=== PATIENT | female | born 1960 | race Caucasian/White ===

== ENCOUNTER 2020-11-25 09:12 | Outpatient (REF) | payer OTHER, SELFPAY ==
[2020-11-25 10:13] LABS: Hematocrit 40.3 % (37-47); Hemoglobin 12.6 g/dl (12.0-16.0); Mean Corpuscular HGB Conc 31.3 g/dl (31.0-35.0); Mean Corpuscular Hemoglobin 26.9 pg (27.0-33.0); Mean Corpuscular Volume 85.9 fL (80-98); Mean Platelet Volume 10.1 fL (9.4-12.3); Platelet Count 298 X10*3/uL (160-400); Red Blood Count 4.69 X10*6/uL (4.20-5.50); Red Cell Distribution Width 14.5 % (11.0-16.0); White Blood Count 7.1 X10*3/uL (4.8-10.8)
[2020-11-25 10:47] LABS: Alanine Aminotransferase 23 U/L (0-31); Albumin Level 4.3 g/dL (3.5-5.0); Alkaline Phosphatase 71 U/L (39-117); Anion Gap 11 (12-20); Aspartate Amino Transferase 17 U/L (5-31); Bilirubin Direct < 0.2 mg/dL (0.0-0.5); Bilirubin Total 0.3 mg/dL (0.0-1.0); Blood Urea Nitrogen 19 mg/dL (9-16); Calcium 9.5 mg/dL (8.4-10.2); Carbon Dioxide 29 mmol/L (22-29); Chloride 104 mmol/L (96-108); Cholesterol 227 mg/dL; Estimated Glomerular Filt Rate > 60; Glucose Random 77 mg/dL (60-115); HDL Cholesterol 59 mg/dL; LDL Cholesterol Calculated 136 mg/dl; Potassium 4.6 mmol/L (3.3-5.1); Sodium 139 mmol/L (135-145); Total Protein 7.3 g/dL (6.5-8.0); Triglycerides 163 mg/dL
[2020-11-25 10:48] LABS: Glucose Urine UA NEG (NEG); Leukocyte Esterase Urine TRACE (NEG); Nitrite Urine NEG (NEG); PH 5.5 (5.0-8.0); Specific Gravity - Urine 1.025 (1.005-1.025); Urine Blood NEG (NEG); Urine Ketones NEG (NEG); Urine Protein NEG (NEG-TRACE)
[2020-11-25 10:51] LABS: Appearance Urine CLEAR; Color Urine YELLOW
[2020-11-25 11:10] LABS: RBC Urine 0-2 /HPF (0); WBC Urine 0-2 /HPF (0-4)
[2020-12-04 12:51] LABS: Vitamin D 25-OH, D2 <4 ng/mL; Vitamin D 25-OH, D3 22 ng/mL; Vitamin D 25-OH, Total 22 ng/mL (30-100)
== END 2020-11-25 09:13 | disposition home or self-care (01) ==
LOC: HO.LAB 09:12
PROVIDERS: PCP Internal Medicine; Visit Provider Internal Medicine
DX: I10 Essential (primary) hypertension (principal)
CPT/HCPCS: 36415; 80048; 80061; 80076; 81001; 82306; 84443; 85027

== ENCOUNTER → 2020-12-06 08:01 | Outpatient (REF) | payer OTHER, SELFPAY ==
--- NOTE | ~2020-12-06 | NM_ITS ---
Lexiscan Myocardial perfusion study Indication: Chest pain, assess for coronary disease and ischemia Technique: The patient was brought in for a Lexiscan perfusion study on 12/06/2020 and was injected 0.4 mg of Lexiscan intravenously. Within a minute of this injection 30 mCi of sestamibi was given intravenously. Images were obtained using the SPECT gamma camera interlaced with the gating device. Images were obtained in supine position. Resting perfusion study was performed on 12/09/2020. Patient was administered 30 mCi of sestamibi intravenously at rest. Images were then obtained in supine position. Total DLP 103mGy-cm. Images were processed with the software and compared side to side in short axis, horizontal long axis and vertical long axis views. Findings: Raw acquisition was reviewed. The stress perfusion study showed mildly diminished tracer uptake in the mid to distal anterior wall. With CT attenuation correction, this improves suggesting soft tissue attenuation artifact. The gated study shows normal LV systolic function with calculated LVEF of 76%. LV cavity is normal in size. The gated study shows normal wall thickening and contraction of segments. Resting study shows diminished tracer uptake in the mid to distal anterior wall. Improvement with CT attenuation suggestive of artifactual etiology. Gating at rest reveals normal wall motion with ejection fraction at 75%. The findings are consistent with fixed defect in the mid to distal anterior wall; no reversible defects. NM/NM oh perf SPECT rest & str Impression: 1. Myocardial perfusion imaging study shows no definitive evidence of any ischemia or infarction. Fixed anterior defect suspected to be from soft tissue attenuation artifact. 2. Gated LVEF is > 70% during stress and rest. 3. Transient ischemic dilatation not present. EKG component of the test reported separately.
--- NOTE | 2020-12-06 08:04 | CA_ITS ---
Acquisition Time: 2020-12-06 08:04:12 Total Exercise Time: 00:02:00 Test Indications: Chest Pain Medications: AMLODIPINE LEVOTHYROXINE Protocol: LEXISCAN Max HR: 100 BPM 62% of Pred: 159 BPM Max BP: 140/092 mmHG Max Work Load: 1.0 METS Pharmacological stress test with Lexiscan injection, while sitting and kicking her legs, without anginal symptoms, without arrythmia, with normotensive response to injection, with nondiagnostic EKG for ischemia. Nuclear images pending. Test reviewed with Dr Duarte. Referred By: Scottie Riley Overread By: FANG ELLIS
== END ==
LOC: HO.CARD 08:01
PROVIDERS: PCP Internal Medicine; Visit Provider Internal Medicine
DX: R07.9 Chest pain, unspecified (principal)
CPT/HCPCS: 78452; 93017; A9500; J0280; J2785

== ENCOUNTER 2020-12-09 09:25 | Outpatient (REF) | payer OTHER, SELFPAY ==
--- NOTE | ~2020-12-09 | MM_ITS ---
EXAMINATION: MM SCREENING DIGITAL BREAST TOMOSYNTHESIS, BILATERAL CLINICAL INFORMATION: Screening. Asymptomatic. Prior outside mammography no longer available. Age 60. No known family history breast cancer. The lifetime risk of breast cancer based on the Tyrer-Cuzick Model is 5%. COMPARISON: None (current study represents new baseline exam). TECHNIQUE: Digital breast tomosynthesis is performed in both the craniocaudal and mediolateral oblique views along with computer-aided detection (CAD). Synthesized 2D images are generated from the tomosynthesis. FINDINGS: There are scattered areas of fibroglandular density (ACR BI-RADS breast composition Category b). There are no significant masses, abnormal calcifications, or other abnormalities. The axilla and skin contours are unremarkable. MM/MM tomosynthesis screening BI IMPRESSION: No mammographic evidence of malignancy. ASSESSMENT: BI-RADS 1: Negative RECOMMENDATION: Routine annual mammography screening. This patient's information was entered into a reminder system with a target due date for their next mammogram.
== END 2020-12-09 09:26 | disposition home or self-care (01) ==
LOC: HO.MAMMO 09:25
PROVIDERS: PCP Internal Medicine; Visit Provider Internal Medicine
DX: Z12.31 Encounter for screening mammogram for malignant neoplasm of breast (principal)
CPT/HCPCS: 77063; 77067

== ENCOUNTER 2022-01-23 10:33 | Outpatient (REF) | payer OTHER, SELFPAY ==
[2022-01-23 11:11] LABS: Hemoglobin 13.2 g/dl (12.0-16.0); Mean Corpuscular HGB Conc 32.2 g/dl (31.0-35.0); Mean Corpuscular Hemoglobin 27.2 pg (27.0-33.0); Mean Corpuscular Volume 84.4 fL (80.0-98.0); Mean Platelet Volume 10.2 fL (9.4-12.3); Platelet Count 283 X10*3/uL (160-400); Red Blood Count 4.86 X10*6/uL (4.20-5.50); Red Cell Distribution Width 14.2 % (11.0-16.0); White Blood Count 7.5 X10*3/uL (4.8-10.8)
[2022-01-23 11:54] LABS: Alanine Aminotransferase 27 U/L (0-31); Albumin Level 4.2 g/dL (3.5-5.0); Alkaline Phosphatase 71 U/L (39-117); Anion Gap 15 (12-20); Aspartate Amino Transferase 20 U/L (5-31); Bilirubin Direct 0.2 mg/dL (0.0-0.5); Bilirubin Total 0.3 mg/dL (0.0-1.0); Blood Urea Nitrogen 19 mg/dL (9-16); Calcium 9.5 mg/dL (8.4-10.2); Carbon Dioxide 28 mmol/L (22-29); Chloride 100 mmol/L (96-108); Cholesterol 242 mg/dL; Estimated Glomerular Filt Rate 58; Glucose Random 79 mg/dL (60-115); HDL Cholesterol 59 mg/dL; LDL Cholesterol Calculated 150 mg/dl; Potassium 4.3 mmol/L (3.3-5.1); Sodium 139 mmol/L (135-145); Total Protein 7.3 g/dL (6.5-8.0); Triglycerides 168 mg/dL
== END 2022-01-23 10:34 | disposition home or self-care (01) ==
LOC: HO.LAB 10:33
PROVIDERS: PCP Internal Medicine; Visit Provider Internal Medicine
DX: I10 Essential (primary) hypertension (principal)
CPT/HCPCS: 36415; 80048; 80061; 80076; 84443; 85027

== ENCOUNTER 2022-01-27 08:45 | Outpatient (REF) | payer OTHER, SELFPAY ==
--- NOTE | ~2022-01-27 | MM_ITS ---
EXAMINATION: MM SCREENING DIGITAL BREAST TOMOSYNTHESIS, BILATERAL CLINICAL INFORMATION: Screening. Asymptomatic. The lifetime risk of breast cancer based on the Tyrer-Cuzick Model is 5%. COMPARISON: Mammography: 12/09/2020 (new baseline) TECHNIQUE: Digital breast tomosynthesis is performed in both the craniocaudal and mediolateral oblique views along with computer-aided detection (CAD). Synthesized 2D images are generated from the tomosynthesis. FINDINGS: There are scattered areas of fibroglandular density (ACR BI-RADS breast composition Category b). Parenchymal pattern is similar to prior baseline exam. No interval mass or architectural abnormality. No abnormal calcifications. The axilla and skin contours are unremarkable. MM/MM tomosynthesis screening BI IMPRESSION: No mammographic evidence of malignancy. ASSESSMENT: BI-RADS 1: Negative RECOMMENDATION: Routine annual mammography screening. This patient's information was entered into a reminder system with a target due date for their next mammogram.
== END 2022-01-27 08:46 | disposition home or self-care (01) ==
LOC: HO.MAMMO 08:45
PROVIDERS: PCP Internal Medicine; Visit Provider Internal Medicine
DX: Z12.31 Encounter for screening mammogram for malignant neoplasm of breast (principal)
CPT/HCPCS: 77063; 77067

== ENCOUNTER 2022-07-16 08:27 | Outpatient (REF) | payer OTHER, SELFPAY ==
[2022-07-16 09:57] LABS: Hematocrit 43.1 % (37.0-47.0); Hemoglobin 13.8 g/dl (12.0-16.0); Mean Corpuscular Hemoglobin 27.2 pg (27.0-33.0); Mean Corpuscular Volume 84.8 fL (80.0-98.0); Mean Platelet Volume 10.6 fL (9.4-12.3); Platelet Count 314 X10*3/uL (160-400); Red Blood Count 5.08 X10*6/uL (4.20-5.50); Red Cell Distribution Width 14.5 % (11.0-16.0); White Blood Count 7.5 X10*3/uL (4.8-10.8)
[2022-07-16 10:44] LABS: Alanine Aminotransferase 29 U/L (0-31); Albumin Level 4.4 g/dL (3.5-5.0); Alkaline Phosphatase 68 U/L (39-117); Anion Gap 13 (12-20); Aspartate Amino Transferase 21 U/L (5-31); Bilirubin Direct < 0.2 mg/dL (0.0-0.5); Bilirubin Total 0.6 mg/dL (0.0-1.0); Blood Urea Nitrogen 16 mg/dL (9-16); Calcium 9.4 mg/dL (8.4-10.2); Carbon Dioxide 28 mmol/L (22-29); Chloride 101 mmol/L (96-108); Cholesterol 194 mg/dL; Estimated Glomerular Filt Rate > 60; Glucose Random 82 mg/dL (60-115); HDL Cholesterol 69 mg/dL; LDL Cholesterol Calculated 98 mg/dl; Potassium 4.5 mmol/L (3.3-5.1); Sodium 137 mmol/L (135-145); Total Protein 7.4 g/dL (6.5-8.0); Triglycerides 138 mg/dL
== END 2022-07-16 08:28 | disposition home or self-care (01) ==
LOC: HO.LAB 08:27
PROVIDERS: PCP Internal Medicine; Visit Provider Internal Medicine
DX: E78.01 Familial hypercholesterolemia (principal)
CPT/HCPCS: 36415; 80048; 80061; 80076; 84443; 85027

== ENCOUNTER 2022-12-23 09:42 | Outpatient (AMB) | payer OTHER, SELFPAY ==
--- NOTE | 2022-12-23 09:48 | A.OFFVIS_ITS ---
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 No complaints. Last Pap/HPV was many years ago Last Mammogram was BI-RADS 1 in 01/29 No previous screen colonoscopy [facility] Medical History (Updated 12/23/22 @ 10:03 by David Monique MD) Acquired hypothyroidism Class 2 severe obesity with body mass index (BMI) of 35 to 39.9 with serious comorbidity Edema of both feet Essential hypertension Familial hypercholesterolemia Surgical History (Updated 12/23/22 @ 09:55 by Sammi Mckeon CMA) History of dilatation and curettage History of hysterectomy History of rotator cuff surgery Hx of tubal ligation Family History (Updated 12/23/22 @ 09:55 by Sammi Mckeon CMA) Mother HTN (hypertension) Diabetes Social History (Updated 12/23/22 @ 09:56 by Sammi Mckeon CMA) Household Members: None Housing: Apartment Alcohol intake: former Patient Tobacco Use Status: Former Tobacco user Tobacco use type: Cigarette e-Cigarette/Vaping Use: Never Used Second Hand Smoke Exposure: Yes service: No Current occupational status: unemployed and previously employed Sexually active: No Sexual orientation: Straight/Heterosexual Gender identity: Female Cognitive needs: No Hearing needs: No Vision needs: Yes (glasses) Female Reproductive History Menstrual control method: permanent sterilization Total pregnancies: 3 Full term: 3 Number of Living Children: 3 Review of Systems Const All systems reviewed & are unremarkable except as noted in HPI and below Card Reports as per HPI and Reports no additional complaints Resp Reports as per HPI and Reports no additional complaints GI Reports as per HPI and Reports no additional complaints Reports as per HPI Physical Exam Vital Signs: Last Vital Signs BP 124/78 12/23/22 09:51 BMI result Body Mass Index 36.0 Const General: cooperative, healthy appearing and comfortable Chest Chest palpation & inspection: normal inspection of the chest and normal palpation of entire chest wall Breast/axilla inspection: normal inspection of the breasts and normal inspection of the axillae Breast/axilla palpation: normal palpation of the breasts, normal palpation of the axillae and no axillary lymphadenopathy Resp Effort & Inspection: normal respiratory effort Auscultation: clear to auscultation bilaterally Percussion: percussion normal Cardio Palpation: normal PMI Rate: regular rate Rhythm: regular rhythm Heart sounds: no murmurs and no rubs Peripheral pulses: Peripheral pulses 2+ throughout GI Inspection: Yes normal to inspection Palpation (GI): Soft to palpation, nontender, no guarding, not rigid and No hepatosplenomegaly present Percussion: Yes normal to percussion Auscultation: normal bowel sounds Rectal Exam - Female: deferred General: Yes bladder normal to palpation External Female Exam: No lesion Speculum Exam - Vagina: normal appearance of the vagina, normal vaginal discharge and not erythematous Speculum Exam - Cervix: normal appearance of the cervix Bimanual exam- vagina & uterus: bladder normal to palpation and uterine shape normal Bimanual Exam- Adnexa, other: normal adnexae Assessment & Plan Assessment & Plan (1) Well woman exam: Code(s): Z01.419 - Encounter for gynecological examination (general) (routine) without abnormal findings Plan: Co testing done. Counseled the patient about the recommended dietary allowance of 1200 mg of Calcium & 600 IU of vitamin D. Mammogram ordered , the patient was referred to GI for screening colonoscopy . The patient was instructed to perform monthly self-breast exams and schedule annual exam in a year; all questions answered and the patient verbalized understanding. Orders: Orders MM screening mammo BI Today Z12.31 - Encounter for screening mammogram for malignant neoplasm of breast Referrals Gastroenterology Referral Z12.11 - Encounter for screening for malignant neoplasm of colon Coding Level of Care Code New Pt Prev Care 40-64y(19180) Diagnoses Well woman exam Z01.419
[2022-12-23 09:51] VITALS: BP 124/78; BMI 36.0
== END 2022-12-23 10:15 | disposition home or self-care (01) ==
LOC: HO.HWS 09:42
PROVIDERS: PCP Internal Medicine; Visit Provider Obstetrics & Gynecology
DX: Z01.419 Encounter for gynecological examination (general) (routine) without abnormal findings (principal)
CPT/HCPCS: 99386

== ENCOUNTER 2022-12-23 09:42 | Outpatient (REF) | payer OTHER, SELFPAY ==
[2022-12-25 21:33] LABS: HPV mRNA E6/E7 rflx Not Detected (Not Detected)
== END 2022-12-23 09:43 | disposition home or self-care (01) ==
LOC: HO.LNP 09:42
PROVIDERS: PCP Internal Medicine; Visit Provider Obstetrics & Gynecology
DX: Z01.419 Encounter for gynecological examination (general) (routine) without abnormal findings (principal); Z12.31 Encounter for screening mammogram for malignant neoplasm of breast
CPT/HCPCS: 87624; 88142

== ENCOUNTER 2023-12-29 14:31 | Outpatient (AMB) | payer OTHER, SELFPAY ==
[2023-12-29 14:37] VITALS: BP 128/82; PULSE 73; O2SAT 98; BMI 36.8
--- NOTE | 2023-12-29 14:37 | MHC.PC.OV ---
Vital Signs 12/29/23 14:37 Height 5 ft 3 in Weight 207 lb 8 oz BMI 36.8 BP 128/82 Blood Pressure Location Lt brachial Position Sitting Pulse 73 Pulse Source Pulse Oximeter Pulse Oximetry (%) 98 Oxygen Delivery Method Room Air Intake Visit Reasons: Body aches, numbness Shadow Graph Weight Operator Required: No Accompanied by: Self / Same As Patient Allergies No Known Allergies Allergy (Verified 12/29/23 14:38) Tobacco use date assessed: 12/29/23 Fall risk assessment: No Falls in past year Last assessed Fall Risk: 12/29/23 Dental Screening Dental Screen Date: 12/29/23 Did you have a dental visit in the last 12 months?: No Did you have a dental problem in the last 6 months where you did not have access to dental care?: No Was dental information given to patient?: No HPI Body aches, numbness HPI Details 63-year-old female presents to the office to discuss her chronic medical conditions. Patient has had intermittent pain from her neck to the toe. Symptoms are worse in the morning especially around the right hand. Stiffness symptoms last for less than an hour. Able to function and do her activities of daily living. Despite 2 providers giving her appointments for a screening colonoscopy, patient has not had it done. Continues to be reluctant. She will need an appointment for a screening mammogram. Patient also has mild psoriasis behind the right ear and is requesting treatment. [facility] Medical History (Updated 12/29/23 @ 15:39 by Scottie Riley MD) Psoriasis Familial hypercholesterolemia Class 2 severe obesity with body mass index (BMI) of 35 to 39.9 with serious comorbidity Edema of both feet Acquired hypothyroidism Essential hypertension Surgical History History of dilatation and curettage Hx of tubal ligation History of hysterectomy History of rotator cuff surgery Family History Mother HTN (hypertension) Diabetes Social History Household Members: None Housing: Apartment Alcohol intake: former Patient Tobacco Use Status: Former Tobacco user Tobacco use type: Cigarette e-Cigarette/Vaping Use: Never Used Second Hand Smoke Exposure: Yes service: No Current occupational status: unemployed and previously employed Sexual orientation: Straight/Heterosexual Gender identity: Female Cognitive needs: No Hearing needs: No Vision needs: Yes (glasses) Questionnaire PHQ-9 Over the last 2 weeks, how often have you been bothered by any of the following problems? 1. Little interest or pleasure in doing things: not at all 2. Feeling down, depressed, or hopeless: not at all 3. Trouble falling or staying asleep, or sleeping too much: not at all 4. Feeling tired or having little energy: not at all 5. Poor appetite or overeating: not at all 6. Feeling bad about yourself - or that you are a failure or have let yourself or your family down: not at all 7. Trouble concentrating on things, such as reading the newspaper or watching television: not at all 8. Moving or speaking so slowly that other people could have noticed. Or the opposite - being so fidgety or restless that you have been moving around a lot more than usual: not at all 9. Thoughts that you would be better off or of hurting yourself in some way: not at all Total score: 0 Depression Screening Interpretation: Negative Depression Screening Done: Yes Source: Developed by Drs. Michele Madrigal, Keena Montero, Buddy Zuniga and colleagues, with an educational samir from [employer]. Thrive Questionnaire Date Thrive assessed: 12/29/23 I am a: Patient What is your living situation today?: I have a steady place to live Within the past 12 months, did the food you bought not last and you didn't have the money to get more?: Never true Within the past 12 months, did you worry whether your food would run out before you got money to buy more?: Never true Do you have trouble paying for medicines?: No Do you have trouble getting transportation to medical appointments?: No Do you have trouble paying your heating and electricity bill?: No Do you have trouble taking care of your child, family member or friend?: No Do you have trouble with day-to-day activities such as bathing, preparing meals, shopping, managing finances, etc.?: No Are you currently unemployed and looking for a job?: No Are you interested in more education?: No Please select the resources that you would like help with: None Currently or been in a relationship where the following occur: No concerns reported THRIVE Score: 0 AUDIT C Alcohol Use Questionnaire (AUDIT-C) 1. How often do you have a drink containing alcohol?: Never Total Score: 0 LIZET-7 AMB Questionnaire LIZET-7 Date LIZET - 7 assessed: 12/29/23 Feeling nervous, anxious, or on edge: 0 = Not at all Not being able to stop or control worryin = Not at all Worrying too much about different things: 0 = Not at all Trouble relaxin = Not at all Being so restless that it is hard to sit still: 0 = Not at all Becoming easily annoyed or irritable: 0 = Not at all Feeling afraid as if something awful might happen: 0 = Not at all Total LIZET-7 score (0-4 normal; 5-9 mild; 10-14 moderate; 15-21 severe): 0 Source: Developed by Drs. Michele Madrigal, Keena Montero, Buddy Zuniga and colleagues, with an educational samir from [employer]. Physical exam (Primary Care) Vital Signs: Last Vital Signs Pulse 73 12/29/23 14:37 BP 128/82 12/29/23 14:37 Pulse Ox 98 12/29/23 14:37 Oxygen Delivery Method Room Air 12/29/23 14:37 BMI result Body Mass Index 36.8 BMI Assessment/Plan discussion: High (1 lb per week weight loss suggested.) BMI High, discussed plan: lifestyle, weight reduction and dietary Tobacco/Smoking Status: Tobacco use Status Tobacco use date assessed 12/29/23 12/29/23 14:47 Patient Tobacco Use Status Former Tobacco user 12/29/23 14:47 Tobacco use type Cigarette 12/29/23 14:47 e-Cigarette/Vaping Use Never Used 12/29/23 14:47 PHQ-9: PHQ-9 Score PHQ-9: Total score 0 12/29/23 14:47 Depression Screening Interpretation: Negative Thrive Assessment: Date of Thrive Assessment Date Thrive assessed 12/29/23 12/29/23 14:47 Currently or been in a relationship where the following occur: No concerns reported Const General: cooperative and healthy appearing Nutritional Appearance: well nourished Orientation/consciousness: patient oriented x3 Limitations: no limitations HENMT Head: Yes normal to inspection Eyes General: appearance normal, both eyes and all related structures Neck Neck: Yes normal visual inspection Chest Chest palpation & inspection: normal palpation of entire chest wall Resp Effort & Inspection: normal respiratory effort Neuro General: patient oriented x3 Assessment and Plan Assessment & Plan (1) Essential hypertension: Code(s): I10 - Essential (primary) hypertension Plan: Blood work has been ordered. Will call with results. Continue medications at same dosage. (2) Class 2 severe obesity with body mass index (BMI) of 35 to 39.9 with serious comorbidity: Code(s): E66.01 - Morbid (severe) obesity due to excess calories Plan: Counseling on the importance of diet and exercise done. (3) Familial hypercholesterolemia: Code(s): E78.01 - Familial hypercholesterolemia Plan: Fasting blood work requested. (4) Psoriasis: Code(s): L40.9 - Psoriasis, unspecified Plan: Triamcinolone cream prescribed. Orders: Orders Basic Metabolic Panel Today E66.01 - Morbid (severe) obesity due to excess calories, E78.01 - Familial hypercholesterolemia, I10 - Essential (primary) hypertension Complete Blood Count no Diff Today E66.01 - Morbid (severe) obesity due to excess calories, E78.01 - Familial hypercholesterolemia, I10 - Essential (primary) hypertension Liver Panel Today E66.01 - Morbid (severe) obesity due to excess calories, E78.01 - Familial hypercholesterolemia, I10 - Essential (primary) hypertension Thyroid Stimulating Hormone Today E66.01 - Morbid (severe) obesity due to excess calories, E78.01 - Familial hypercholesterolemia, I10 - Essential (primary) hypertension Erythrocyte Sedimentation Rate Today E66.01 - Morbid (severe) obesity due to excess calories, E78.01 - Familial hypercholesterolemia, I10 - Essential (primary) hypertension XR cervical spine 3V Today M15.9 - Polyosteoarthritis, unspecified XR hand RT min 3V Today M15.9 - Polyosteoarthritis, unspecified Lipid Panel Today E66.01 - Morbid (severe) obesity due to excess calories, E78.01 - Familial hypercholesterolemia, I10 - Essential (primary) hypertension UA and rflx microscopic Today E66.01 - Morbid (severe) obesity due to excess calories, E78.01 - Familial hypercholesterolemia, I10 - Essential (primary) hypertension MM screening mammo BI Today Z12.31 - Encounter for screening mammogram for malignant neoplasm of breast Referrals Cologuard Test Z12.11 - Encounter for screening for malignant neoplasm of colon Coding Level of Care Code Est Pt Level 4 (54365) Complex EM visit Add On G2211 Diagnoses Essential hypertension I10 Class 2 severe obesity with body mass index (BMI) of 35 to 39.9 with serious comorbidity E66.01 Familial hypercholesterolemia E78.01 Psoriasis L40.9
== END 2023-12-29 15:38 | disposition home or self-care (01) ==
PROVIDERS: PCP Internal Medicine; Visit Provider Internal Medicine
DX: I10 Essential (primary) hypertension (principal); E66.01 Morbid (severe) obesity due to excess calories; E78.01 Familial hypercholesterolemia; Z68.36 Body mass index [BMI] 36.0-36.9, adult; L40.9 Psoriasis, unspecified
CPT/HCPCS: 99214

== ENCOUNTER 2024-01-24 11:02 | Outpatient (REF) | payer OTHER, SELFPAY ==
--- NOTE | ~2024-01-24 | XR_ITS ---
EXAMINATION: XR CERVICAL SPINE CLINICAL INFORMATION: Polyosteoarthritis, pain in neck, no recent trauma. COMPARISON: None available. TECHNIQUE: 5 views of the cervical spine. FINDINGS: Straightening of the normal cervical lordosis. Multilevel cervical spondylosis. Mild posterior subluxation of C4 on C5. [id number] loss of disc space height at C3-C4, C4-C5, C5-C6, and C6-C7. Multilevel facet arthritis. XR/XR cervical spine 3V IMPRESSION: Multilevel cervical spondylosis. Electronically signed by: Amanda Barker MD 03/26/2024 08:25 PM EST
--- NOTE | ~2024-01-24 | XR_ITS ---
EXAMINATION: XR HAND, RIGHT CLINICAL INFORMATION: Polyosteoarthritis, pain and swelling of right hand, worse in the fourth digit. COMPARISON: None available. TECHNIQUE: PA, lateral, and oblique views of the right hand. FINDINGS: Moderate degenerative changes in the first carpometacarpal joint and triscaphe joint with joint space narrowing and hypertrophic change. Moderate degenerative changes in multiple IP joints, most notable in the third and fourth digit PIP joints with joint space narrowing and hypertrophic change. XR/XR hand RT min 3V IMPRESSION: 1. Moderate degenerative changes in the first carpometacarpal joint and triscaphe joint. 2. Moderate degenerative changes in multiple IP joints, most notable in the third and fourth digit PIP joints with joint space narrowing and hypertrophic change. Electronically signed by: Amanda Barker MD 03/15/2024 01:01 PM TODD QUILES
[2024-01-24 11:59] LABS: Hematocrit 40.1 % (37.0-47.0); Hemoglobin 13.1 g/dl (12.0-16.0); Mean Corpuscular HGB Conc 32.7 g/dl (31.0-35.0); Mean Corpuscular Hemoglobin 27.1 pg (27.0-33.0); Mean Corpuscular Volume 82.9 fL (80.0-98.0); Mean Platelet Volume 10.2 fL (9.4-12.3); Platelet Count 305 X10*3/uL (160-400); Red Blood Count 4.84 X10*6/uL (4.20-5.50); Red Cell Distribution Width 14.6 % (11.0-16.0); White Blood Count 7.8 X10*3/uL (4.8-10.8)
[2024-01-24 12:36] LABS: Erythrocyte Sedimentation Rate 25 MM/HR (0-20)
[2024-01-24 12:46] LABS: Appearance Urine Clear; Color Urine Yellow; Glucose Urine UA Negative (Negative); Leukocyte Esterase Urine Trace (Negative); Nitrite Urine Negative (Negative); PH 5.5 (5.0-9.0); UMIC TRIGGER UA YES; Urine Blood Negative (Negative); Urine Ketones Negative (Negative); Urine Protein Negative (Neg-Trace)
[2024-01-24 13:15] LABS: Bacteria Urine None Seen (None Seen); Hyaline Casts Urine 0-2 /LPF (0-2); RBC Urine 0-2 /HPF (0-2); Squamous Epithelial Cell Urine 0-2 /HPF (0-2); WBC Urine 0-5 /HPF (0-5)
[2024-01-24 13:16] LABS: Alanine Aminotransferase 15 U/L (0-31); Albumin Level 4.2 g/dL (3.5-5.0); Alkaline Phosphatase 73 U/L (39-117); Anion Gap 13 (12-20); Aspartate Amino Transferase 14 U/L (5-31); Bilirubin Direct 0.1 mg/dL (0.0-0.5); Bilirubin Total 0.3 mg/dL (0.0-1.0); Blood Urea Nitrogen 21 mg/dL (9-16); Calcium 10.1 mg/dL (8.4-10.2); Carbon Dioxide 30 mmol/L (22-29); Chloride 102 mmol/L (96-108); Cholesterol 179 mg/dL (<200); Estimated Glomerular Filt Rate 55; Glucose Random 67 mg/dL (60-115); HDL Cholesterol 63 mg/dL (>40); LDL Cholesterol Calculated 96 mg/dL (<100); Potassium 4.4 mmol/L (3.3-5.1); Sodium 141 mmol/L (135-145); Total Protein 7.6 g/dL (6.5-8.0); Triglycerides 101 mg/dL (<150)
[2024-01-24 13:41] LABS: Thyroid Stimulating Hormone 5.41 uIU/mL (0.32-4.0)
== END 2024-01-24 11:03 | disposition home or self-care (01) ==
LOC: HO.LAB 11:02
PROVIDERS: PCP Internal Medicine; Visit Provider Internal Medicine
DX: I10 Essential (primary) hypertension (principal); E66.01 Morbid (severe) obesity due to excess calories; E78.01 Familial hypercholesterolemia; M15.9 Polyosteoarthritis, unspecified
CPT/HCPCS: 36415; 72040; 73130; 80048; 80061; 80076; 81001; 84443; 85027; 85652

== ENCOUNTER 2024-03-27 14:05 | Outpatient (AMB) | payer MEDICAID, SELFPAY ==
--- NOTE | 2024-03-27 14:22 | MHC.PC.OV ---
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 After the last office visit, patient reported pain at the back of her neck with tingling sensation radiating into her fingers. An x-ray of the cervical spine was ordered which showed narrowing of disc space with spondylosis between C4 and C5. There is also arthritis at all cervical joints. REPLACED BY [facility] Medical History (Updated 03/27/24 @ 15:02 by Scottie Riley MD) Cervical spondylosis Psoriasis Familial hypercholesterolemia Class 2 severe obesity with body mass index (BMI) of 35 to 39.9 with serious comorbidity Edema of both feet Acquired hypothyroidism Essential hypertension Surgical History History of dilatation and curettage Hx of tubal ligation History of hysterectomy History of rotator cuff surgery Family History Mother HTN (hypertension) Diabetes Social History Household Members: None Housing: Apartment Alcohol intake: former Patient Tobacco Use Status: Former Tobacco user Tobacco use type: Cigarette e-Cigarette/Vaping Use: Never Used Second Hand Smoke Exposure: Yes service: No Current occupational status: unemployed and previously employed Sexual orientation: Straight/Heterosexual Gender identity: Female Cognitive needs: No Hearing needs: No Vision needs: Yes (glasses) Questionnaire Thrive Questionnaire Date Thrive assessed: 12/29/23 LIZET-7 AMB Questionnaire LIZET-7 Date LIZET - 7 assessed: 12/29/23 Source: Developed by Drs. Michele Madrigal, Keena Montero, Buddy Zuniga and colleagues, with an educational samir from [employer]. Physical exam (Primary Care) Vital Signs: Last Vital Signs Pulse 74 03/27/24 14:23 BP 118/60 03/27/24 14:23 Pulse Ox 98 03/27/24 14:23 Oxygen Delivery Method Room Air 03/27/24 14:23 BMI result Body Mass Index 37.4 Tobacco/Smoking Status: Tobacco use Status Tobacco use date assessed 12/29/23 03/27/24 14:24 Patient Tobacco Use Status Former Tobacco user 03/27/24 14:24 Tobacco use type Cigarette 03/27/24 14:24 e-Cigarette/Vaping Use Never Used 03/27/24 14:24 Thrive Assessment: Date of Thrive Assessment Date Thrive assessed 12/29/23 03/27/24 14:24 Const General: cooperative and healthy appearing Nutritional Appearance: well nourished Orientation/consciousness: patient oriented x3 Limitations: no limitations HENMT Head: Yes normal to inspection Eyes General: appearance normal, both eyes and all related structures Neck Neck: Yes normal visual inspection Chest Chest palpation & inspection: normal palpation of entire chest wall Resp Effort & Inspection: normal respiratory effort Neuro General: patient oriented x3 Office Procedures Flu Questionnaire Does the patient have a severe egg allergy?: No Does the patient have severe life threatening allergies?: No Does the patient have a fever or illness today?: No Has the patient ever had Guillain-[place]der[place] Syndrome?: No Has the patient ever had any past reaction to a flu shot?: No Immunizations Fluarix Triv [id number] (PF) 45 mcg (15 mcg x 3)/0.5 mL IM syringe Performing Provider: Scottie Riley MD [facility] [place] Administered by: JARED Moy on 03/27/24 14:58 Dose Route Admin Location Dispensed Lot Number Expiration Date [facility] Assistant Plant Control Operator 0.5 mL IM Left Deltoid 0.5 mL [id number] 11/06/24 26156-394-80 [employer] VIS Given Date VIS Provided VIS Publication Date 03/27/24 Single Vaccine 20 Eligibility Eligibility Date Funding Source Not [facility] Eligible 03/27/24 Private Coding Level of Care Code Est Pt Level 3 (39326) Complex EM visit Add On G2211 Diagnoses Cervical spondylosis M47.812 Assessment & Plan Assessment & Plan (1) Cervical spondylosis: Code(s): M47.812 - Spondylosis without myelopathy or radiculopathy, cervical region Category: Medical Plan: C-spine reviewed with patient. A neurosurgical opinion will be requested. Physical therapy has been ordered. Orders: Orders Influenza [id number] Immunization Today Z23 - Encounter for immunization Referrals Neurosurgery Referral M47.812 - Spondylosis without myelopathy or radiculopathy, cervical region
[2024-03-27 14:23] VITALS: BP 118/60; PULSE 74; O2SAT 98; BMI 37.4
== END 2024-03-27 15:00 | disposition home or self-care (01) ==
PROVIDERS: PCP Internal Medicine; Visit Provider Internal Medicine
DX: Z23 Encounter for immunization (principal); M47.812 Spondylosis without myelopathy or radiculopathy, cervical region

== ENCOUNTER → 2024-03-27 14:05 | Outpatient (BNVA) | payer MEDICAID, SELFPAY | PROVIDERS: PCP Internal Medicine; Visit Provider Internal Medicine | DX: Z23 Encounter for immunization (principal); M47.812 Spondylosis without myelopathy or radiculopathy, cervical region | CPT/HCPCS: 90471; 90656; 99212 ==

== ENCOUNTER 2024-05-08 18:45 | Outpatient (REF) | payer MEDICAID, SELFPAY ==
--- NOTE | ~2024-05-08 | MR_ITS ---
CLINICAL HISTORY: M47.812 - Spondylosis without myelopathy or radiculopathy, cervical region MRI cervical spine without contrast Comparison: None Findings: C6-7 transverse osteophytosis noted. No significant canal or neural foraminal narrowing. Remaining disc levels are unremarkable. No canal or neural foraminal narrowing noted. No acute bony signal abnormality. Posterior bony alignment is normal. Cervical cord normal in course and caliber. No internal cord signal abnormality. Impression: No significant abnormality This document has been electronically signed by: Mark Mckeon MD on 05/09/2024 19:24:38
== END 2024-05-08 18:46 | disposition home or self-care (01) ==
LOC: HO.MRI 18:45
PROVIDERS: PCP Internal Medicine; Visit Provider Internal Medicine
DX: M47.812 Spondylosis without myelopathy or radiculopathy, cervical region (principal)
CPT/HCPCS: 72141

== ENCOUNTER → 2024-05-08 18:49 | Outpatient (BNV) | payer MEDICAID, SELFPAY | PROVIDERS: PCP Internal Medicine; Visit Provider Radiology Diagnostic Radiology | DX: M47.812 Spondylosis without myelopathy or radiculopathy, cervical region (principal); M50.323 Other cervical disc degeneration at C6-C7 level | CPT/HCPCS: 72141 ==

== ENCOUNTER 2025-04-25 11:14 | Outpatient (AMB) | payer MEDICARE, MEDICAID, SELFPAY ==
--- NOTE | 2025-04-25 11:17 | A.OFFPC_ITS ---
Vital Signs 04/25/25 11:19 Height 5 ft 3 in Weight 2154 lb BMI 381.5 Blood Pressure Location Lt brachial Position Sitting Pulse Source Pulse Oximeter Temp 97.3 F Temp Source Temporal Artery Scan Oxygen Delivery Method Room Air Intake Visit Reasons: annual exam - see comments Intake Note: Patient is here today for a physical. 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: No Director Of Promotions: Not Required per policy Accompanied by: Self / Same As Patient Allergies No Known Allergies Allergy (Verified 04/25/25 11:18) Tobacco use date assessed: 04/25/25 Fall risk assessment: No Falls in past year Last assessed Fall Risk: 04/25/25 Dental Screening Dental Screen Date: 04/25/25 Did you have a dental visit in the last 12 months?: Yes Did you have a dental problem in the last 6 months where you did not have access to dental care?: No Was dental information given to patient?: Patient has dentist [facility] Medical History (Updated 03/27/24 @ 15:02 by Scottie Riley MD) Cervical spondylosis Psoriasis Familial hypercholesterolemia Class 2 severe obesity with body mass index (BMI) of 35 to 39.9 with serious comorbidity Edema of both feet Acquired hypothyroidism Essential hypertension Surgical History History of dilatation and curettage Hx of tubal ligation History of hysterectomy History of rotator cuff surgery Family History Mother HTN (hypertension) Diabetes Social History Household Members: None Housing: Apartment Alcohol intake: former Patient Tobacco Use Status: Former Tobacco user Tobacco use type: Cigarette e-Cigarette/Vaping Use: Never Used Second Hand Smoke Exposure: Yes service: No Current occupational status: unemployed and previously employed Sexual orientation: Straight/Heterosexual Gender identity: Female Cognitive needs: No Hearing needs: No Vision needs: Yes (glasses) Questionnaire PHQ-9 Over the last 2 weeks, how often have you been bothered by any of the following problems? 1. Little interest or pleasure in doing things: not at all 2. Feeling down, depressed, or hopeless: not at all 3. Trouble falling or staying asleep, or sleeping too much: not at all 4. Feeling tired or having little energy: not at all 5. Poor appetite or overeating: not at all 6. Feeling bad about yourself - or that you are a failure or have let yourself or your family down: not at all 7. Trouble concentrating on things, such as reading the newspaper or watching television: not at all 8. Moving or speaking so slowly that other people could have noticed. Or the opposite - being so fidgety or restless that you have been moving around a lot more than usual: not at all 9. Thoughts that you would be better off or of hurting yourself in some way: not at all Total score: 0 Depression Screening Interpretation: Negative Depression Screening Done: Yes Source: Developed by Drs. Michele Madrigal, Keena Montero, Buddy Zuniga and colleagues, with an educational samir from [employer]. Thrive Questionnaire Date Thrive assessed: 04/18/25 I am a: Patient What is your living situation today?: I have a steady place to live Within the past 12 months, did the food you bought not last and you didn't have the money to get more?: Sometimes True Within the past 12 months, did you worry whether your food would run out before you got money to buy more?: Sometimes True Do you have trouble paying for medicines?: No Do you have trouble getting transportation to medical appointments?: No Do you have trouble paying your heating and electricity bill?: No Do you have trouble taking care of your child, family member or friend?: No Do you have trouble with day-to-day activities such as bathing, preparing meals, shopping, managing finances, etc.?: No Are you currently unemployed and looking for a job?: No Are you interested in more education?: No Please select the resources that you would like help with: None Currently or been in a relationship where the following occur: I choose not to answer THRIVE Score: 2 AUDIT C Alcohol Use Questionnaire (AUDIT-C) 1. How often do you have a drink containing alcohol?: Never Total Score: 0 LIZET-7 AMB Questionnaire LIZET-7 Date LIZET - 7 assessed: 04/25/25 Feeling nervous, anxious, or on edge: 0 = Not at all Not being able to stop or control worryin = Not at all Worrying too much about different things: 0 = Not at all Trouble relaxin = Not at all Being so restless that it is hard to sit still: 0 = Not at all Becoming easily annoyed or irritable: 0 = Not at all Feeling afraid as if something awful might happen: 0 = Not at all Total LIZET-7 score (0-4 normal; 5-9 mild; 10-14 moderate; 15-21 severe): 0 Source: Developed by Drs. Michele Madrigal, Keena Montero, Buddy Zuniga and colleagues, with an educational samir from [employer]. Physical exam (Primary Care) Tobacco/Smoking Status: Tobacco use Status Tobacco use date assessed 12/29/23 03/27/24 14:24 Patient Tobacco Use Status Former Tobacco user 03/27/24 14:24 Tobacco use type Cigarette 03/27/24 14:24 e-Cigarette/Vaping Use Never Used 03/27/24 14:24 Depression Screening Interpretation: Negative Thrive Assessment: Date of Thrive Assessment Date Thrive assessed 04/18/25 04/18/25 11:59 Currently or been in a relationship where the following occur: I choose not to answer Coding
[2025-04-25 11:19] VITALS: BP 120/68; PULSE 78; TEMP 36.3; O2SAT 96; BMI 381.5
--- NOTE | 2025-04-25 11:22 | AM.OFFVISMDC ---
Intake Vital Signs 04/25/25 11:19 Height 5 ft 3 in Weight 2154 lb BMI 381.5 BP 120/68 Blood Pressure Location Lt brachial Position Sitting Pulse 78 Pulse Source Pulse Oximeter Temp 97.3 F Temp Source Temporal Artery Scan Pulse Oximetry (%) 96 Oxygen Delivery Method Room Air Intake Visit Reasons: annual exam - see comments Intake Note: Patient is here for an Annual Wellness Visit. Guitar Maker Required: No Physics Technical Officer: Physics Technical Officer offered & declined Accompanied by: Self / Same As Patient Allergies No Known Allergies Allergy (Verified 04/25/25 15:30) Medication List - Last Reconciled 04/25/25 by Scottie Riley MD atorvastatin 10 mg PO BEDTIME cholecalciferol (vitamin D3) 25 mcg PO DAILY levothyroxine 50 mcg PO DAILY lisinopril-hydrochlorothiazide 10-12.5 mg 2 tabs PO DAILY pantoprazole 40 mg PO DAILY triamcinolone acetonide 0.025% 1 appl topical BID HPI HPI Comments History of Present Illness Details History of Present Illness - The patient is a 64-year-old female presenting for a Medicare wellness visit and to address right-sided neck pain. - She has been experiencing pain in her right neck for the past week, which also involves her back and radiates to her shoulder. - The patient reports adherence to her prescribed medications, including levothyroxine 50 mcg once daily for her thyroid, lisinopril, and a cream. - She has not received her statin medication for cholesterol since requesting a refill on April 25. - She has discontinued pantoprazole for stomach issues and is managing symptoms through dietary modifications, such as avoiding tomato sauce and using low-fat milk. - Regarding health maintenance, her last blood work was performed over a year ago. - She missed a scheduled mammogram appointment but wishes to reschedule. - She has declined both colonoscopy and a Cologuard test for colon cancer screening, citing discomfort and negative experiences of friends. - The patient reports losing vision, which she attributes to her age, and has independently scheduled an ophthalmology appointment. Social History - Employment: The patient is seeking employment as her Social Security income is insufficient and has a training appointment for a potential job. - Nutrition: The patient reports being careful with her diet to manage gastrointestinal symptoms, including avoiding tomato sauce and consuming 2% or fat-free milk. - Family: She plans to visit her family and granddaughter for [place]. Results [facility] Medical History Cervical spondylosis Psoriasis Familial hypercholesterolemia Class 2 severe obesity with body mass index (BMI) of 35 to 39.9 with serious comorbidity Edema of both feet Acquired hypothyroidism Essential hypertension Surgical History History of dilatation and curettage Hx of tubal ligation History of hysterectomy History of rotator cuff surgery Family History Mother HTN (hypertension) Diabetes Social History Household Members: None Housing: Apartment Alcohol intake: former Patient Tobacco Use Status: Former Tobacco user Tobacco use type: Cigarette e-Cigarette/Vaping Use: Never Used Second Hand Smoke Exposure: Yes service: No Current occupational status: unemployed and previously employed Sexual orientation: Straight/Heterosexual Gender identity: Female Cognitive needs: No Hearing needs: No Vision needs: Yes (glasses) Questionnaire Medicare Wellness Checkup What [age] What gender do you identify with?: female During the past 4 weeks, how much have you been bothered by emotional problems such as feeling anxious, depressed, irritable, sad or downhearted, and blue?: not at all During the past 4 weeks, has your physical & emotional health limited your social activities with family, friends, neighbors, or groups?: not at all During the past 4 weeks, how much bodily pain have you generally had?: moderate pain During the past 4 weeks, was someone available to help you if you needed & wanted help?: yes, as much as I wanted During the past 4 weeks, what was the hardest physical activity you could do for at least 2 minutes?: moderate Can you get to places out of walking distance without help? (For eg., can you travel alone on buses, taxis or drive your car?): Yes Can you go shopping for groceries or clothes without someone's help?: No Can you prepare your own meals?: Yes Can you do your housework without help?: Yes Because of any health problems, do you need the help of another person with your personal care needs such as eating, bathing, dressing or getting around the house?: No Can you handle your own money without help?: Yes During the past 4 weeks, how would you rate your health in general?: good During the past 4 weeks how have things been going for you?: pretty well Are you having difficulties driving your car?: no Do you always fasten your seat belt when you are in a car?: yes, usually During past 4 weeks, have you been bothered by the following: never: Falling or dizzy when standing up, Sexual problems?, Trouble eating well?, Teeth or denture problems?, Problems using the telephone? and Tiredness or fatigue? Have you fallen 2 or more times in the past year?: No Are you afraid of falling?: No Are you a smoker?: no During the past 4 weeks, how many drinks of wine, beer, or other alcoholic beverages did you have?: no alcohol at all Do you exercise for about 20 minutes 3 or more times a week?: no, I usually do not exercise this much Have you been given information to help with the following?: no: Hazards in your house that might hurt you? and no: Keeping track of your medications? How often do you have trouble taking medicines the way you have been told to take them?: I seldom take medications as prescribed How confident are you that you can control & manage most of your health problems?: very confident What is your race?: or origin or descent Mini Mental State Exam (MMSE) Orientation What is the (year) (season) (date) (day) (month)?: year, season, date and day Where are we (state) (county) (town or city) (hospital) (floor)?: state, county and town or city Score Score: 7 Activity of Daily Living Bathing - sponge bath, tub bath or shower: receives no assistance (gets in/out by self, if usual bathing means Dressing - getting clothes from closets & drawers, including inner/outer garments & fasteners.: gets clothes & gets completely dressed without help Toileting - going to the 'toilet room' for urine/bowel elimination & cleaning self/arranging clothes: goes to toilet room, cleans self, arranges clothes without help Transfer: moves in & out of bed and chair without help (may use support object) Continence: controls urination/bowel movements completely by self Feeding: feeds self without help Total Score: 0 Information obtained from: patient Using telephone: independent Traveling: independent Shopping: independent Preparing meals: independent Housework: independent Taking medicine: independent Managing money: independent PHQ-9 Over the last 2 weeks, how often have you been bothered by any of the following problems? 1. Little interest or pleasure in doing things: not at all 2. Feeling down, depressed, or hopeless: not at all 3. Trouble falling or staying asleep, or sleeping too much: not at all 4. Feeling tired or having little energy: not at all 5. Poor appetite or overeating: not at all 6. Feeling bad about yourself - or that you are a failure or have let yourself or your family down: not at all 7. Trouble concentrating on things, such as reading the newspaper or watching television: not at all 8. Moving or speaking so slowly that other people could have noticed. Or the opposite - being so fidgety or restless that you have been moving around a lot more than usual: not at all 9. Thoughts that you would be better off or of hurting yourself in some way: not at all Total score: 0 Depression Screening Interpretation: Negative Depression Screening Done: Yes Source: Developed by Drs. Michele Madrigal, Keena Montero, Buddy Zuniga and colleagues, with an educational samir from [employer]. Thrive Questionnaire Date Thrive assessed: 04/25/25 I am a: Patient What is your living situation today?: I have a steady place to live Within the past 12 months, did the food you bought not last and you didn't have the money to get more?: Sometimes True Within the past 12 months, did you worry whether your food would run out before you got money to buy more?: Sometimes True Do you have trouble paying for medicines?: No Do you have trouble getting transportation to medical appointments?: No Do you have trouble paying your heating and electricity bill?: No Do you have trouble taking care of your child, family member or friend?: No Do you have trouble with day-to-day activities such as bathing, preparing meals, shopping, managing finances, etc.?: No Are you currently unemployed and looking for a job?: No Are you interested in more education?: No Please select the resources that you would like help with: None Currently or been in a relationship where the following occur: I choose not to answer THRIVE Score: 2 LIZET-7 AMB Questionnaire LIZET-7 Date LIZET - 7 assessed: 04/25/25 Feeling nervous, anxious, or on edge: 0 = Not at all Not being able to stop or control worryin = Not at all Worrying too much about different things: 0 = Not at all Trouble relaxin = Not at all Being so restless that it is hard to sit still: 0 = Not at all Becoming easily annoyed or irritable: 0 = Not at all Feeling afraid as if something awful might happen: 0 = Not at all Total LIZET-7 score (0-4 normal; 5-9 mild; 10-14 moderate; 15-21 severe): 0 Source: Developed by Drs. Michele Madrigal, Keena Montero, Buddy Zuniga and colleagues, with an educational smair from [employer]. AUDIT C Alcohol Use Questionnaire (AUDIT-C) 1. How often do you have a drink containing alcohol?: Never Total Score: 0 Review of Systems Narrative Review of Systems - Musculoskeletal: Reports right-sided neck pain for one week, with radiation to the back and shoulder. - Eyes: Reports losing vision. - Gastrointestinal: Denies abdominal pain on examination. 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 Vital Signs: Last Vital Signs Temp 97.3 F 04/25/25 11:19 Pulse 78 04/25/25 11:19 BP 120/68 04/25/25 11:19 Pulse Ox 96 04/25/25 11:19 Oxygen Delivery Method Room Air 04/25/25 11:19 BMI result Body Mass Index 381.5 Balance: Normal, Romberg: Negative Tandem Walk: Normal Walk and Turn: Normal Rise from sit to stand: Normal Hearing Whisper test: Pass Assessment & Plan Assessment & Plan (1) Essential hypertension: Code(s): I10 - Essential (primary) hypertension (2) Encounter for general adult medical examination without abnormal findings: Code(s): Z00.00 - Encounter for general adult medical examination without abnormal findings Plan Plan - Cervicalgia: Reassured the patient that the neck pain is likely due to muscular compression and should resolve; advised against carrying heavy items. - Hyperlipidemia: A prescription for a statin will be sent to the [facility] on [facility]. - Health Maintenance: Ordered fasting blood work, which the patient will complete on Wednesday. - Health Maintenance: A new appointment will be scheduled for a mammogram. - Health Maintenance: The patient declined colon cancer screening with either colonoscopy or Cologuard at this time. - Decreased Vision: The patient will proceed with her self-scheduled ophthalmology appointment. - Follow-up: The patient will return to the clinic in six months for a follow-up visit. Discussion Notes I conducted a Medicare wellness visit with the patient. I provided reassurance regarding her recent onset of right-sided neck pain, explaining that it is likely muscular in origin and should improve. We reviewed her medication list, and I will resend her statin prescription to her pharmacy. I have ordered fasting lab work and will arrange for her to receive a new mammogram appointment. We discussed colon cancer screening, but she declined both colonoscopy and Cologuard. Follow-up is scheduled in six months. Patient Instructions - Your neck pain should improve on its own. Please try to avoid carrying heavy things. - I will resend your cholesterol medication prescription to the [facility]. - Please go to the lab across the street on Wednesday morning for fasting blood work. Do not eat or drink anything except water before the test. - We will give you a new appointment for your mammogram. - Continue with your plan to see the eye doctor for your vision. - Please schedule a follow-up appointment to see me in six months. Orders: Orders Complete Blood Count no Diff Today I10 - Essential (primary) hypertension Basic Metabolic Panel Today I10 - Essential (primary) hypertension Liver Panel Today I10 - Essential (primary) hypertension UA and rflx microscopic Today I10 - Essential (primary) hypertension MM screening mammo BI Today Z12.31 - Encounter for screening mammogram for malignant neoplasm of breast Lipid Panel Today I10 - Essential (primary) hypertension Thyroid Stimulating Hormone Today I10 - Essential (primary) hypertension Medications: Refilled atorvastatin 10 mg PO BEDTIME 90 tabs 1RF Quality Reporting (2019) Depression/Bipolar (159/160/161/177) PHQ-9: Total score: 0 Coding Level of Care Code Medicare Subsequent (G0439) Est Pt Level 3 (01513) Diagnoses Essential hypertension I10 Encounter for general adult medical examination without abnormal findings Z00.00 Advance Care Planning Advance Care Planning discussion: Exists, not on file Date of discussion: 04/25/25 Who was present: pt Forms completed: Health Care Proxy and DANIELA
--- OUTSIDE RECORDS SUMMARY | 2025-04-25 14:56 | XMS_ITS | Patient Health Record ---
Author Organization [facility] Address [address] [place] [address] Care Team Providers Care Cisco Administrator Name Role Phone SHANICE TALAVERA Unavailable [phone] Robina Beavers Unavailable Unavailable Reason For Referral No Information Medications Medication SIG (Take, Route, Frequency, Duration) Notes Start Date End Date Status Synthroid Active Thyroid Active Social History Tobacco Use: Social History Observation Description Date Details (start date - stop date) Former Smoker NA - NA Tobacco Use/Smoking Question Answer Notes Are you a former smoker How long has it been since you last smoked? > 10 years Alcohol Screen Question Answer Notes Did you have a drink containing alcohol in the p ast year? No Points 0 Interpretation Negative Sexual History Question Answer Notes Had sex in the past 12 months (vaginal, oral, or anal)? No Have you ever had a Sexually transmitted disease ? No Last menstrual period unsure BMI Management Question Answer Notes Above Normal BMI Follow-up Dietary manag ement education, guidance, and counseling Problems Problem Type SNOMED Code ICD Code Onset Dates Problem Status W/U Status Risk Notes Problem Disorder of thyroid gland (16328497) Thyroid disorder/dise ase (246.9) Active confirmed Plan Of Treatment Pending Test Test Name Order Date PAP + HPV HIGH RISK 11/11/2016 MAMMOGRAM SCREENING 11/11/2016 TRANSVAGINAL--NON OB 11/11/2016 Insurance Providers Payer Name Payer Address Payer Phone Subscriber Number Group Number Insured Name Patient Relationship to Insured Coverage Start Date Coverage End Date [facility]/ [facility] [address] [address] [place] [address] [id number] Chitra Camp Self - patient is the insured [facility] [address] [place], [place] [phone] [id number] Chitra Camp Self - patient is the insured Medical (General) History Medical History History ICD Code thyroid disease Surgical History Surgery Date(Month/Year) shoulder release
--- OUTSIDE RECORDS SUMMARY | 2025-04-25 14:56 | XMS_ITS | Patient Health Record ---
Author Organization [facility] Address [address] [place] [address] Care Team Providers Care Dynamicist Name Role Phone Robina Beavers Primary Care Provider Reason For Referral No Information Medications Medication SIG (Take, Route, Frequency, Duration) Notes Start Date End Date Status Terbinafine HCl 250 MG take 1 tablet by mouth once daily; Duration: 30 Active Levothroid 50 MCG 1 Orally Once a day; Duration: 90 days Active Levothyroxine Sodium 50 MCG take 1 table t by mouth once daily; Duration: 30 Active LamISIL 250 mg 1 tablet Orally Once a day; Duration: 30 days 06/28/2014 Active Valtrex 1 GM 1 tablet Orally ever y 24 hrs; Duration: 10 day(s) 07/10/2014 Active Immunizations Vaccine Route Administration Date Status Comme nts Flu, Split, 6-35 MO, IM Unknown 06/21/2012 Administered Koko: Problems Problem Type SNOMED Code ICD Code Onset Dates Problem Status W/U Status Risk Notes Problem Thyrotoxicosis (96990396) Thyrotoxicosis without mention of goiter or other cause, without mention of thyrotoxic crisis or storm (242.90) 009 Active confirmed Koko: History of; H/O Hyperthyroidi sm; Problem Hyperlipidemia (94649418) Hyperlipidemia (272.4) Active confirmed Problem Hypothyroid (97426046) Hypothyroid (244.9) Active confirmed Problem Hypertension (90701580) HTN (hypertension) (401.9) 009 Active confirmed Koko: History of; H/O Hypertensive disorder; Problem Anxiety (86230468) Anxiety (300.00) Active confirmed Problem Adult health examination (614770323) Routine adult health maintenance (V70.0) Active confirmed Problem Herpes zoster without complication (515542782) Shingles rash (053.9) Active confirmed Problem Shingles (1910010) Shingles (053.9) Active confirmed Problem Weight gain (182337466) Weight gain (R63.5) Active confirmed Problem Tinea unguium (107246424) Tinea unguium (B35.1) Active confirmed Problem Hypothyroidism (27026831) Hypothyroidism, unspecified (E03.9) Active confirmed Problem Problem, abnormal examination (37318154) Encounter for routine adult health examination with abnormal findings (Z00.01) Active confirmed Plan Of Treatment Pending Test Test Name Order Date CMP([facility]) 06/28/2014 Lipid Profile ([facility]) 06/28/2014 TSH([facility]) 06/28/2014 Vitamin D, 25 Hydroxy([facility]) 2014 EKG 07/01/2015 EKG 06/28/2014 BONE DENSITY/DEXASCAN 09/18/2014 MAMMOGRAM SCREENING 06/28/2014 MAMMOGRAM SCREENING 12/28/2013 CBC with Differential (AUTO) 06/28/2014 Future Test Test Name Order Date CMP([facility]) 07/01/2015 Lipid Profile ([facility]) 07/01/2015 TSH([facility]) 07/01/2015 CBC with Differential (AUTO) 07/01/2015 MAMMOGRAM SCREENING 07/02/2015 Insurance Providers Payer Name Payer Address Payer Phone Subscriber Number Group Number Insured Name Patient Relationship to Insured Coverage Start Date Coverage End Date [employer] [address] [place] [address] [phone] [id number] Chitra Suarez Self - patient is the insured 6 [employer] [address] [place], [place] [id number] NO MEDICAL Chitra Camp Self - patient is the insured 9 Medical (General) History Surgical History Surgery Date(Month/Year) No current problems or disability
== END 2025-04-25 11:54 | disposition home or self-care (01) ==
LOC: HO.HMCH 11:14
PROVIDERS: PCP Internal Medicine; Visit Provider Internal Medicine
DX: Z00.00 Encounter for general adult medical examination without abnormal findings (principal); I10 Essential (primary) hypertension; E78.5 Hyperlipidemia, unspecified; M54.2 Cervicalgia